=== PATIENT | male | born 1940 | race Caucasian/White ===

== ENCOUNTER → 2016-11-10 | Outpatient (CLI) | payer BC ==
[~2016-11-10] MED LIST: AMOX500C3 PO; APR25 PO; ASCO500T3 PO; ASPI1TAB83 PO; ATOR-26 PO; B-CO-25 PO; CALC600T9 PO; CHOL2000 PO; CLOP1TAB15 PO; COEN100C11 PO; CYAN10005 PO; GABA-113 PO; GLUC10007 PO; HYDR100T12 PO; HYDR25TA4 PO; MULTTAB58 PO; NAPR1TAB9 PO; NRV5 PO; OMEG10007 PO; PHN/100 PO; PLV75 PO; RISE150T PO; SIMV80TA2 PO; TIMO10TA2 OPL; lidocaine patch
--- NOTE | 2016-11-10 13:29 | DIAGNOSTIC IMAGING REPORT ---
CHEST 2 VIEWS ROUTINE CLINICAL HISTORY: Z01.818 preoperative evaluation COMPARISON STUDY: 08/25/2015 FINDINGS: The bones soft tissues and hemidiaphragms are normal. The cardiomediastinal silhouette is normal. The lungs are clear. The pulmonary vasculature is normal. Prior median sternotomy. IMPRESSION: No acute process. Electronically signed by: Kye Valdez M.D. 11/10/2016 1:28 PM Dictated Date/Time: 11/10/2016 1:27 PM
== END | disposition home or self-care (01) ==
LOC: C.RAD1850 13:14
PROVIDERS: ATTEND Physician Assistant
DX: Z01.818 Encounter for other preprocedural examination (principal)

== ENCOUNTER → 2017-04-05 | Day surgery (SDC) | payer BC ==
[2017-03-26 13:20] VITALS: Ht 171.5 cm; Wt 79.5 kg
[~2017-04-05] VITALS: Ht 171.5 cm; Wt 79.5 kg
[~2017-04-05] MED LIST changes: -APR25 PO; -CALC600T9 PO; +LIDOCAINE HCL 2% 2 ML VIAL (20MG/ML) ONE; -NRV5 PO; -OMEG10007 PO; -PLV75 PO; +PROPOFOL IV EMULSION 10 MG/ML 20 ML VIAL IV ONE; -SIMV80TA2 PO; -lidocaine patch
--- NOTE | 2017-04-05 13:27 | Endo History and Physical ---
History & Physical Date of Service: Apr 05, 2017. Chief Complaint: Hx polyps, fam hx colon cancer Referring Physician: Dr Rios History of Present Illness For colonoscopy Past Medical History Arthritis, Anxiety, Reflux, Cancer, High Cholesterol, Sleep Apnea, CABG, Hypertension, CVA/TIA, Depression, IA Past Surgical History Hx Cardiac Surgery: Yes (CABG-2 VESSELS) Hx Internal Defibrillator: No Hx Pacemaker: No Hx Abdominal Surgery: Yes (RT/LEFT INGUINAL HERNIA, APPY, ABDOMINAL ADHESIONS REMOVED X 2) Hx Post-Op Nausea and Vomiting: No Hx Cancer Surgery: No Hx Thoracic Surgery: No Hx Orthopedic: Yes (LUMBAR FUSION AND THEN REPAIR FUSION, LEFT KNEE ARTHROSCOPY ) Hx Urinary Tract Surgery: Yes (PROSTATE BIOPSY) Family History Polyp Social History Smoking Status: Former Smoker Hx Substance Use: No Hx Alcohol Use: No Allergies Coded Allergies: Latex (Verified Allergy, Mild, RASH, 03/26/17) Adhesives (Verified Allergy, Unknown, RASH AND SORE SKIN, 03/26/17) Fexofenadine (Verified Allergy, Unknown, RASH AND NOT FEEL WELL, 03/26/17) Current Medications Reported Home Medications Medications Dose Route/Sig Max Daily Dose Days Date Category Amoxil (Amoxicillin) 500 Mg Cap 500 Mg PO UD 03/26/17 Reported Vitamin C (Ascorbic Acid) 500 Mg Tab 50 Mg PO QAM 03/26/17 Reported Glucosamine (Glucosamine Sulfate) 1,000 Mg Tab 1,000 Mg PO QAM 03/26/17 Reported Aleve (Naproxen) 220 Mg Tab 220 Mg PO BID 03/26/17 Reported Vitamin B-12 (Cyanocobalamin) 1,000 Mcg Tab 1,000 Mcg PO QAM 03/26/17 Reported Lipitor (Atorvastatin Calcium) 80 Mg Tab 80 Mg PO QAM 03/26/17 Reported Blocadren (Timolol Maleate) 10 Mg Tab 10 Mg OPL QAM 03/26/17 Reported Neurontin (Gabapentin) 300 Mg Cap 300 Mg PO TID 03/26/17 Reported Apresoline (Hydralazine Hcl) 100 Mg Tab 100 Mg PO QAM 03/26/17 Reported Actonel (Risedronate Sodium) 150 Mg Tab 1 Tab PO MONTHLY 03/26/17 Reported Plavix (Clopidogrel Bisulfate) 75 Mg Tab 75 Mg PO QAM 03/26/17 Reported Hctz (Hydrochlorothiazide) 25 Mg Tab 25 Mg PO QAM 01/20/16 Reported Coq-10 (Coenzyme Q10 (Ubidecarenone)) 100 Mg Cap 100 Mg PO QAM 09/29/15 Reported Multivitamin (Multiple Vitamin) 1 Tab Tab 1 Tab PO QAM 07/27/14 Reported Super B Complex Maxi (B-Complex W/ Folic Acid) 1 Tab Tab 1 Tab PO QAM 07/27/14 Reported Vitamin D3 (Cholecalciferol) 2,000 Unit Cap 2,000 Inter.unit PO QAM 07/27/14 Reported Aspirin 81 Mg Tab 81 Mg PO QAM 07/27/14 Reported Dilantin (Phenytoin Sodium) 100 Mg Cap 300 Mg PO TID 07/27/14 Reported Vital Signs Weight (Kilograms): 79.55 Height (Feet): 5 Height (Inches): 7.5 Physical Exam General Appearance: WD/WN Respiratory/Chest: Respiratory effort: no dyspnea Cardiovascular: Heart Auscultation: RRR Abdomen: Inspection & Palpation: soft Assessment and Plan Hx of polyps for colonoscopy
--- NOTE | 2017-04-05 14:54 | Discharge Instructions ---
Endoscopy Patient Instructions Date / Procedure(s) Performed Apr 05, 2017. Colonoscopy Allergy Information Coded Allergies: Latex (Verified Allergy, Mild, RASH, 04/05/17) Adhesives (Verified Allergy, Unknown, RASH AND SORE SKIN, 03/26/17) Fexofenadine (Verified Allergy, Unknown, RASH AND NOT FEEL WELL, 03/26/17) Discharge Date / Findings Apr 05, 2017. Diverticulosis Medication Instructions Stopped Medication(s): ASA Plvaix Restart Stopped Medication(s): resume meds Reported Home Medications Medications Dose Route/Sig Max Daily Dose Days Date Category Amoxil (Amoxicillin) 500 Mg Cap 500 Mg PO UD 03/26/17 Reported Vitamin C (Ascorbic Acid) 500 Mg Tab 50 Mg PO QAM 03/26/17 Reported Glucosamine (Glucosamine Sulfate) 1,000 Mg Tab 1,000 Mg PO QAM 03/26/17 Reported Aleve (Naproxen) 220 Mg Tab 220 Mg PO BID 03/26/17 Reported Vitamin B-12 (Cyanocobalamin) 1,000 Mcg Tab 1,000 Mcg PO QAM 03/26/17 Reported Lipitor (Atorvastatin Calcium) 80 Mg Tab 80 Mg PO QAM 03/26/17 Reported Blocadren (Timolol Maleate) 10 Mg Tab 10 Mg OPL QAM 03/26/17 Reported Neurontin (Gabapentin) 300 Mg Cap 300 Mg PO TID 03/26/17 Reported Apresoline (Hydralazine Hcl) 100 Mg Tab 100 Mg PO QAM 03/26/17 Reported Actonel (Risedronate Sodium) 150 Mg Tab 1 Tab PO MONTHLY 03/26/17 Reported Plavix (Clopidogrel Bisulfate) 75 Mg Tab 75 Mg PO QAM 03/26/17 Reported Hctz (Hydrochlorothiazide) 25 Mg Tab 25 Mg PO QAM 01/20/16 Reported Coq-10 (Coenzyme Q10 (Ubidecarenone)) 100 Mg Cap 100 Mg PO QAM 09/29/15 Reported Multivitamin (Multiple Vitamin) 1 Tab Tab 1 Tab PO QAM 07/27/14 Reported Super B Complex Maxi (B-Complex W/ Folic Acid) 1 Tab Tab 1 Tab PO QAM 07/27/14 Reported Vitamin D3 (Cholecalciferol) 2,000 Unit Cap 2,000 Inter.unit PO QAM 07/27/14 Reported Aspirin 81 Mg Tab 81 Mg PO QAM 07/27/14 Reported Dilantin (Phenytoin Sodium) 100 Mg Cap 300 Mg PO TID 07/27/14 Reported Provider Instructions Activity Restrictions - No exercising or heavy lifting for 24 hours. - Do not drink alcohol the day of the procedure. - Do not drive a car or operate machinery until the day after the procedure. - Do not make any important decisions or sign important papers in 24 hours after the procedure. Following Day: - Return to full activity which may include returning to work/school. Diet Start your diet with liquids and light foods (jello, soup, juice, toast). Then eat your usual diet if not nauseated. Treatment For Common After Affects For mild abdominal pain, bloating, or excessive gas: - Rest - Eat lightly - Lie on right side Follow-Up Information Follow-up with Dr Rios as scheduled Anesthesia Information What You Should Know You have had a procedure that required some medicine to reduce anxiety and discomfort. This treatment is called moderate sedation. After receiving the treatment, you may be sleepy, but you will be able to breathe on your own. The effects of the treatment may last for several hours. Follow these instructions along with Activity/Diet recommendations noted above: * Do NOT do anything where dizziness or clumsiness would be dangerous. * Rest quietly at home today, then you can be up and about tomorrow. * Have a responsible person stay with you the rest of today. * You may have had an I.V. today. If so, you may take the dressing off later today. Recommendations Call your doctor if: * Trouble breathing * Continuous vomiting for more than 24 hours * Temperature above 101 degrees * Severe abdominal pain or bloating * Pain not relieved by pain medicine ordered * There is increased drainage or redness from any incision * A large amount of rectal bleeding greater than 2-3 tablespoons. (If you had a polyp/s removed or have hemorrhoids, a small amount of blood - from the rectum is to be expected.) * You have any unanswered questions or concerns. IN THE EVENT OF A SERIOUS EMERGENCY, GO TO THE NEAREST EMERGENCY ROOM Your discharge instructions were prepared by provider Thang Lozada. Patient Instructions Signature Page Juan F Green Patient (or Guardian) Signature/Date: I have read and understand the instructions given to me by my caregivers. Caregiver/RN/Doctor Signature/Date: The above-named patient and/or guardian has received patient instructions on this date. + Original Patient Signature Page (only) stays with chart. Please make copy for patient.
--- NOTE | 2017-04-05 14:58 | GI REPORT ---
Procedure Date: 04/05/2017 1:43 PM Procedure: Colonoscopy Indications: Family history of colon cancer in a first-degree relative, Personal history of colonic polyps Medicines: Propofol total dose 160 mg IV, Lidocaine 40 mg IV Complications: No immediate complications. Estimated Blood Loss: Estimated blood loss: none. Procedure: Pre-Anesthesia Assessment: - Prior to the procedure, a History and Physical was performed, and patient medications, allergies and sensitivities were reviewed. The patient's tolerance of previous anesthesia was reviewed. - The risks and benefits of the procedure and the sedation options and risks were discussed with the patient. All questions were answered and informed consent was obtained. After I obtained informed consent, the scope was passed under direct vision. Throughout the procedure, the patient's blood pressure, pulse, and oxygen saturations were monitored continuously. The scope was introduced through the anus and advanced to the cecum, identified by appendiceal orifice and ileocecal valve.The colonoscopy was somewhat difficult due to significant looping. Successful completion of the procedure was aided by applying abdominal pressure. Findings: A few diverticula were found in the sigmoid colon. Impression: - Diverticulosis in the sigmoid colon. - No specimens collected. Recommendation: - Discharge patient to home (ambulatory). - Continue present medications. - Repeat colonoscopy in 5 years for surveillance. - Return to primary care physician PRN. Thang Lozada M.D. Thang Lozada MD 04/05/2017 2:58:10 PM This report has been signed electronically. Note Initiated On: 04/05/2017 1:43 PM I attest to the content of the Intraoperative Record and orders documented therein, exceptions below
--- NOTE | 2017-04-05 15:23 | Anesthesiology Progress Note ---
Anesthesia Post Op Note Date & Time Apr 05, 2017 at 15:23 Vital Signs Pain Intensity: 0 Vital Signs Past 12 Hours Date Time Temp Pulse Resp B/P (MAP) Pulse Ox O2 Delivery O2 Flow Rate FiO2 04/05/17 15:10 53 16 150/90 (110) 98 Room Air 04/05/17 14:55 52 16 118/88 (98) 97 Room Air 04/05/17 13:35 36.5 49 20 179/93 (121) 98 Room Air Notes Mental Status: alert / awake / arousable, participated in evaluation Pt Amnestic to Procedure: Yes Nausea / Vomiting: adequately controlled Pain: adequately controlled Airway Patency, RR, SpO2: stable & adequate BP & HR: stable & adequate Hydration State: stable & adequate Anesthetic Complications: no major complications apparent
[2017-04-05 15:25] VITALS: BP 167/90; PULSE 47; O2SAT 98
== END | disposition home or self-care (01) ==
LOC: C.GI 13:03
PROVIDERS: ATTEND Internal Medicine Gastroenterology
DX: Z12.11 Encounter for screening for malignant neoplasm of colon (principal); K57.30 Diverticulosis of large intestine without perforation or abscess without bleeding; Z86.010 Personal history of colon polyps; Z80.0 Family history of malignant neoplasm of digestive organs; G47.33 Obstructive sleep apnea (adult) (pediatric); I25.10 Atherosclerotic heart disease of native coronary artery without angina pectoris; E78.00 Pure hypercholesterolemia, unspecified; I10 Essential (primary) hypertension; F32.9 Major depressive disorder, single episode, unspecified; I25.2 Old myocardial infarction; Z95.1 Presence of aortocoronary bypass graft; Z86.73 Personal history of transient ischemic attack (TIA), and cerebral infarction without residual deficits; Z98.890 Other specified postprocedural states; Z90.89 Acquired absence of other organs; Z87.891 Personal history of nicotine dependence; Z79.899 Other long term (current) drug therapy; Z79.02 Long term (current) use of antithrombotics/antiplatelets; Z79.82 Long term (current) use of aspirin; Z91.040 Latex allergy status; Z68.27 Body mass index [BMI] 27.0-27.9, adult

== ENCOUNTER → 2018-01-18 | Outpatient (CLI) | payer BC ==
[~2018-01-18] MED LIST changes: -LIDOCAINE HCL 2% 2 ML VIAL (20MG/ML) ONE; -PROPOFOL IV EMULSION 10 MG/ML 20 ML VIAL IV ONE
--- NOTE | 2018-01-18 13:39 | DIAGNOSTIC IMAGING REPORT ---
L KNEE 3 VIEWS CLINICAL HISTORY: LEFT KNEE PAIN pain COMPARISON: None. DISCUSSION: Moderate degenerative change all major joint compartments. Degenerative change of the medial left patellar femoral articulating surface. Prepatellar soft tissue edema. 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 Prepatellar soft tissue edema. The above report was generated using voice recognition software. It may contain grammatical, syntax or spelling errors. Electronically signed by: Kye Valdez M.D. 01/18/2018 1:38 PM Dictated Date/Time: 01/18/2018 1:37 PM
== END | disposition home or self-care (01) ==
LOC: C.RDSM 13:06
PROVIDERS: ATTEND Physician Assistant
DX: M25.562 Pain in left knee (principal)

== ENCOUNTER → 2018-01-18 | Outpatient (CLI) | payer BC | END | disposition home or self-care (01) | LOC: C.LABSPEC 15:51 | PROVIDERS: ATTEND Physician Assistant | DX: M70.42 Prepatellar bursitis, left knee (principal) ==

== ENCOUNTER 2021-03-29 23:29 | Observation (INO) ==
--- NOTE | 2021-03-30 00:06 | Emergency Department Note ---
Impression & Plan Slurred speech, Facial droop ED Provider Note Name: JOSELYN PATEL Age: 80 Sex: M Arrives Via: Ambulance Informant: Patient, ED Provider: Dimitrios Powers MD Chief Complaint: Stroke like symptoms Impression: Slurred Speech Facial Droop Medical Decision Makin yr old male with history CVA, CAD, HTN, HLP, BPH arrives following a now resolved episode of slurred speech and left facial droop at 9:30pm tonight. Lasted 20-30 mins per . On exam he has some mild word-findings / expressive aphasia issues which relates is at his baseline. He has no neuro deficits other than left leg weakness which patient notes is chronic from back issues and previous stroke. Sent to CT with no acute findings on CT head. He does not meet TPA criteria given resolution of symptoms. Labs unremarkable. Swallowing without difficulty and given asa 324mg PO. Did have some nausea for which zofran given. No abdominal pain nor TTP. Hospitalist consulted for further management of what is likely TIA/CVA. Prior Medical Record and Triage/Nursing Notes reviewed by Me Additional history obtained from chart Differentials:Infection, dehydration, metabolic abnormality, hypo/hyperglycemia, electrolyte disturbance, anemia, hypoxia, cardiac sources, intracerebral event, toxicologic, neurologic, as well as other pathologies. Vital Signs: reviewed and remarkable for HTN Interventions: ASA 324mg po, zofran 4mg po Labs:Reviewed and remarkable for no significant abnormalities Imaging:[facility] Radiologist interpretation reviewed by me: ct head no acute findings EKG:Per My Interpretation: Indication Stroke: Sinus Amadou 49 bpm, qtc 444 with PAC. No Ischemia. Compared to EKG 08/17/20, no significant changes. Cardiac/Tele Monitoring: Cardiac Monitoring: An Order was placed for continuous cardiac monitoring. The monitor shows a rate of 50 with a sinus amadou rhythm. Consults:Dr Amilcar ERAZO Hospitalist Plan: Disposition:Hospitalization Condition: Good History of Present Illness:80 yr old male arrives for evaluation of stroke symptoms. Patient had sudden onset slurred speech, word findings issues and left facial droop at 9:30pm. Symptoms lasted 20-30 minutes before resolving. EMS arrived and brought patient to ED. No medications prior to arrival. No syncope, trauma, injuries, falls. notes that his symptoms have resolved and he is at his baseline. Patient notes stroke 6 yrs ago with residual left hand paresthesias and some left leg weakness attributed to his chronic low back issues. Patient denies headache, neck pain, vision changes, nausea, vomiting, vertigo, fevers, chills, rashes, abdominal pain, back pain, leg swelling, nor other symptoms. No recent bleeding, diarrhea, urinary/bowel symptoms. ROS: See above HPI for pertinent positives & negatives. A total of 10 systems reviewed and were otherwise negative. Past Medical History:See Below Past Surgical History:See Below Family History:See Below Social History:See Below Home Medications:See Below Allergies:See Below Vitals:Blood Pressure: 181/82, Pulse 49, RR 20, O2 99% on RA Physical Exam: GENERAL: Patient is well appearing and in no acute distress. EYES: No scleral icterus, unremarkable pupils. ENT: Mucous membranes moist, no nasal congestion. NECK: No masses appreciated, nomeningismus, trachea is midline. RESPIRATORY: No dyspnea. Clear to auscultation and equal bilaterally. No wheeze, no rhonchi. CARDIOVASCULAR: Regular rate and rhythm.No murmurs, rubs, gallops appreciated. GASTROINTESTINAL: Abdomen soft, non-tender, no peritonitis.Bowel sounds positive.No masses appreciated. BACK: No midline tenderness, no CVA tenderness EXTREMITIES: Normal motion all extremities, no cyanosis, no edema. NEUROLOGIC: Slight word findings difficulty which states is normal. Alert and oriented, no acute motor or sensory deficits, no focal weakness, cranial nerves grossly intact. SKIN: No rash, no jaundice, no diaphoresis. PSYCH: Appropriate GCS: 15 ED Course: Times/Reassessments: Stable, breathing comfortably no distress Dimitrios Powers MD Past Med/Surg History Medical History (Updated 03/30/21 @ 03:20 by Rafiq Montesinos MD) CVA (cerebral vascular accident) Surgical History Hx of CABG Social History Smoking Status: Never smoker Preferred Language: Colombian Feels Safe at Home: Yes Allergies Allergies Allergy/AdvReac Type Severity Reaction Status Date / Time adhesive Allergy Intermediate RASH AND Verified 03/30/21 01:04 SORE SKIN fexofenadine Allergy Intermediate RASH AND Verified 03/30/21 01:04 NOT FEEL WELL latex Allergy Mild RASH Verified 03/30/21 01:04 Home Meds Home Medications Medication Instructions Recorded Confirmed ascorbic acid (vitamin C) 500 mg 500 mg PO QAM 11/29/19 03/30/21 capsule,extended release (Vitamin C) clopidogrel 75 mg tablet 75 mg PO QAM 11/29/19 03/30/21 coenzyme Q10 100 mg capsule 100 mg PO QAM 11/29/19 03/30/21 cyanocobalamin (vitamin B-12) 1,000 mcg PO QAM 11/29/19 03/30/21 1,000 mcg capsule finasteride 5 mg tablet 5 mg PO QPM 11/29/19 03/30/21 hydralazine 25 mg tablet 25 mg PO TID 11/29/19 03/30/21 hydrochlorothiazide 25 mg tablet 25 mg PO QAM 11/29/19 03/30/21 multivitamin 1 tab PO QAM 11/29/19 03/30/21 phenytoin sodium extended 100 mg 100 mg PO TID 11/29/19 03/30/21 capsule risedronate 150 mg tablet 150 mg PO MONTHLY 11/29/19 03/30/21 tamsulosin 0.4 mg capsule 0.4 mg PO QPM 11/29/19 03/30/21 timolol maleate 0.5 % eye drops 2 drp OPL BID 11/29/19 03/30/21 vitamin B complex-folic acid 0.4 1 tab PO QAM 11/29/19 03/30/21 mg tablet (Super B Maxi Complex) atorvastatin 40 mg tablet 40 mg PO HS 08/17/20 03/30/21 calcium carbonate 600 mg (1,500 1 tab PO QAM 08/17/20 03/30/21 mg)-vitamin D3 400 unit tablet (Calcium 600 + D(3)) cholecalciferol (vitamin D3) 25 25 mcg PO QAM 08/17/20 03/30/21 mcg (1,000 unit) capsule (Vitamin D3) lisinopril 20 mg tablet 20 mg PO QAM 08/17/20 03/30/21 Results & Data (ED) Vital Signs Vital Signs - 24 hr 03/29/21 23:37 03/29/21 23:52 03/30/21 00:01 Pulse Rate 50 L 49 L 53 L Pulse Rhythm Regular Pulse Strength Normal Respiratory Rate 27 H 20 20 Respiratory Effort / Characteristics Non-Labored Respiratory Depth Normal Respiratory Pattern Regular Blood Pressure 181/82 H 181/82 H 185/141 H Blood Pressure Mean 115 115 155 Blood Pressure Position Sitting Pulse Oximetry 99 99 Oxygen Delivery Method Room Air Sepsis Recent Fever Within 48 Hours No Sepsis New/Unexplained Change in Mental Status N/A Sepsis Action Taken by Nursing No Action Required 03/30/21 00:26 03/30/21 00:31 03/30/21 00:44 Pulse Rate 49 L 48 L 50 L Pulse Rhythm Pulse Strength Respiratory Rate 13 15 14 Respiratory Effort / Characteristics Respiratory Depth Respiratory Pattern Blood Pressure 187/120 H 188/100 H 186/93 H Blood Pressure Mean 142 129 124 Blood Pressure Position Pulse Oximetry 98 98 96 Oxygen Delivery Method Sepsis Recent Fever Within 48 Hours Sepsis New/Unexplained Change in Mental Status Sepsis Action Taken by Nursing 03/30/21 01:00 03/30/21 01:30 03/30/21 02:01 Pulse Rate 48 L 48 L 50 L Pulse Rhythm Pulse Strength Respiratory Rate 15 21 17 Respiratory Effort / Characteristics Respiratory Depth Respiratory Pattern Blood Pressure 176/102 H 156/96 H 179/93 H Blood Pressure Mean 126 116 121 Blood Pressure Position Pulse Oximetry 96 96 97 Oxygen Delivery Method Sepsis Recent Fever Within 48 Hours Sepsis New/Unexplained Change in Mental Status Sepsis Action Taken by Nursing 03/30/21 02:42 Pulse Rate 54 L Pulse Rhythm Pulse Strength Respiratory Rate 16 Respiratory Effort / Characteristics Respiratory Depth Respiratory Pattern Blood Pressure Blood Pressure Mean Blood Pressure Position Pulse Oximetry Oxygen Delivery Method Sepsis Recent Fever Within 48 Hours Sepsis New/Unexplained Change in Mental Status Sepsis Action Taken by Nursing Laboratory Data Result diagrams: 03/30/21 Unknown 03/30/21 Unknown Lab Results 03/29/21 03/30/21 03/30/21 Range/Units 23:42 00:29 00:43 WBC (4.8-10.8) K/uL RBC (4.7-6.1) M/uL Hgb (14.0-18.0) g/dL Hct (42-52) % MCV (80-100) fL MCH (25-34) pg MCHC (32-36) g/dL RDW Std Deviation (36.4-46.3) fL RDW Coeff of Murali (11.5-14.5) % Plt Count (130-400) K/uL MPV (7.4-10.4) fL Immature Gran % (Auto) % Neut % (Auto) % Lymph % (Auto) % [place] % (Auto) % Eos % (Auto) % Baso % (Auto) % Neut # (Auto) (1.4-6.5) K/uL Lymph # (Auto) (1.2-3.4) K/uL [place] # (Auto) (0.11-0.59) K/uL Eos # (Auto) (0-0.5) K/uL Baso # (Auto) (0-0.2) K/uL Immature Gran # (Auto) (0.00-0.02) K/uL PT (9.0-12.0) Seconds INR (0.9-1.1) APTT (21.0-31.0) Seconds PTT Ratio Sodium (136-145) mmol/L Potassium (3.5-5.1) mmol/L Chloride (98-107) mmol/L Carbon Dioxide (21-32) mmol/L Anion Gap (3-11) BUN (7-18) mg/dl Creatinine (0.6-1.4) mg/dl Est Cr Clr Drug Dosing ml/min Est GFR ( Amer) ml/min Est GFR (Non-Af Amer) ml/min BUN/Creatinine Ratio (10-20) Glucose (70-99) mg/dl POC Glucose 87 (70-99) mg/dl Calcium (8.5-10.1) mg/dl Magnesium (1.8-2.4) mg/dl Total Bilirubin (0.2-1) mg/dl AST (15-37) U/L ALT (12-78) U/L Alkaline Phosphatase (45-117) U/L Troponin I (0-0.045) ng/ml Total Protein (6.4-8.2) gm/dl Albumin (3.4-5.0) gm/dl Globulin (2.5-4.0) gm/dl Albumin/Globulin Ratio (0.9-2) Urine Color Yellow Urine Appearance Clear (Clear) Urine pH 7.5 (4.5-7.5) Ur Specific [place] 1.011 (1.000-1.030) Urine Protein Negative (Negative) Urine Glucose (UA) Negative (Negative) Urine Ketones Negative (Negative) Urine Blood Negative (Negative) Urine Nitrite Negative (Negative) Urine Bilirubin Negative (Negative) Urine Urobilinogen Negative (Negative) Ur Leukocyte Esterase Negative (Negative) COVID-19 Eval Order SARS-CoV-2 (PCR) (Negative) Blood Type A Positive Antibody Screen NEGATIVE 03/30/21 03/30/21 03/30/21 Range/Units 01:37 01:37 Unknown WBC 6.47 (4.8-10.8) K/uL RBC 4.30 L (4.7-6.1) M/uL Hgb 13.0 L (14.0-18.0) g/dL Hct 37.9 L (42-52) % MCV 88.1 (80-100) fL MCH 30.2 (25-34) pg MCHC 34.3 (32-36) g/dL RDW Std Deviation 46.2 (36.4-46.3) fL RDW Coeff of Murali 14.4 (11.5-14.5) % Plt Count 132 (130-400) K/uL MPV 8.8 (7.4-10.4) fL Immature Gran % (Auto) 0.3 % Neut % (Auto) 39.0 % Lymph % (Auto) 28.1 % [place] % (Auto) 31.5 % Eos % (Auto) 0.9 % Baso % (Auto) 0.2 % Neut # (Auto) 2.52 (1.4-6.5) K/uL Lymph # (Auto) 1.82 (1.2-3.4) K/uL [place] # (Auto) 2.04 H (0.11-0.59) K/uL Eos # (Auto) 0.06 (0-0.5) K/uL Baso # (Auto) 0.01 (0-0.2) K/uL Immature Gran # (Auto) 0.02 (0.00-0.02) K/uL PT (9.0-12.0) Seconds INR (0.9-1.1) APTT (21.0-31.0) Seconds PTT Ratio Sodium (136-145) mmol/L Potassium (3.5-5.1) mmol/L Chloride (98-107) mmol/L Carbon Dioxide (21-32) mmol/L Anion Gap (3-11) BUN (7-18) mg/dl Creatinine (0.6-1.4) mg/dl Est Cr Clr Drug Dosing ml/min Est GFR ( Amer) ml/min Est GFR (Non-Af Amer) ml/min BUN/Creatinine Ratio (10-20) Glucose (70-99) mg/dl POC Glucose (70-99) mg/dl Calcium (8.5-10.1) mg/dl Magnesium (1.8-2.4) mg/dl Total Bilirubin (0.2-1) mg/dl AST (15-37) U/L ALT (12-78) U/L Alkaline Phosphatase (45-117) U/L Troponin I (0-0.045) ng/ml Total Protein (6.4-8.2) gm/dl Albumin (3.4-5.0) gm/dl Globulin (2.5-4.0) gm/dl Albumin/Globulin Ratio (0.9-2) Urine Color Urine Appearance (Clear) Urine pH (4.5-7.5) Ur Specific [place] (1.000-1.030) Urine Protein (Negative) Urine Glucose (UA) (Negative) Urine Ketones (Negative) Urine Blood (Negative) Urine Nitrite (Negative) Urine Bilirubin (Negative) Urine Urobilinogen (Negative) Ur Leukocyte Esterase (Negative) COVID-19 Eval Order Covid19 at [facility] SARS-CoV-2 (PCR) NEGATIVE (Negative) Blood Type Antibody Screen 03/30/21 03/30/21 Range/Units Unknown Unknown WBC (4.8-10.8) K/uL RBC (4.7-6.1) M/uL Hgb (14.0-18.0) g/dL Hct (42-52) % MCV (80-100) fL MCH (25-34) pg MCHC (32-36) g/dL RDW Std Deviation (36.4-46.3) fL RDW Coeff of Murali (11.5-14.5) % Plt Count (130-400) K/uL MPV (7.4-10.4) fL Immature Gran % (Auto) % Neut % (Auto) % Lymph % (Auto) % [place] % (Auto) % Eos % (Auto) % Baso % (Auto) % Neut # (Auto) (1.4-6.5) K/uL Lymph # (Auto) (1.2-3.4) K/uL [place] # (Auto) (0.11-0.59) K/uL Eos # (Auto) (0-0.5) K/uL Baso # (Auto) (0-0.2) K/uL Immature Gran # (Auto) (0.00-0.02) K/uL PT 10.6 (9.0-12.0) Seconds INR 1.0 (0.9-1.1) APTT 26.5 (21.0-31.0) Seconds PTT Ratio 1.0 Sodium 136 (136-145) mmol/L Potassium 3.8 (3.5-5.1) mmol/L Chloride 103 (98-107) mmol/L Carbon Dioxide 29 (21-32) mmol/L Anion Gap 5.0 (3-11) BUN 22 H (7-18) mg/dl Creatinine 0.99 (0.6-1.4) mg/dl Est Cr Clr Drug Dosing 62.9 ml/min Est GFR ( Amer) 83.0 ml/min Est GFR (Non-Af Amer) 71.6 ml/min BUN/Creatinine Ratio 22.5 H (10-20) Glucose 87 (70-99) mg/dl POC Glucose (70-99) mg/dl Calcium 8.1 L (8.5-10.1) mg/dl Magnesium 2.2 (1.8-2.4) mg/dl Total Bilirubin 0.2 (0.2-1) mg/dl AST 16 (15-37) U/L ALT 23 (12-78) U/L Alkaline Phosphatase 108 (45-117) U/L Troponin I < 0.015 (0-0.045) ng/ml Total Protein 7.0 (6.4-8.2) gm/dl Albumin 3.5 (3.4-5.0) gm/dl Globulin 3.5 (2.5-4.0) gm/dl Albumin/Globulin Ratio 1.0 (0.9-2) Urine Color Urine Appearance (Clear) Urine pH (4.5-7.5) Ur Specific [place] (1.000-1.030) Urine Protein (Negative) Urine Glucose (UA) (Negative) Urine Ketones (Negative) Urine Blood (Negative) Urine Nitrite (Negative) Urine Bilirubin (Negative) Urine Urobilinogen (Negative) Ur Leukocyte Esterase (Negative) COVID-19 Eval Order SARS-CoV-2 (PCR) (Negative) Blood Type Antibody Screen Administered Medications Discontinued Medications Aspirin (Aspirin 81 Mg Chew) 324 mg PO NOW STA Stop: 03/30/21 00:53 Last Admin: 03/30/21 01:22 Dose: 324 mg Documented by: [id number] Ioversol (Optiray 320 125ml) 100 ml IV ONCE ONE Stop: 03/30/21 02:53 Last Admin: 03/30/21 02:53 Dose: 112 ml Documented by: [id number] Ondansetron HCl (Ondansetron Inj 2 Mg/Ml 2 Ml Vial) 4 mg IV NOW STA Stop: 03/30/21 00:54 Last Admin: 03/30/21 01:23 Dose: 4 mg Documented by: [id number] Discharge Plan Visit Data Chief Complaint: Illness Stated Complaint: Illness ED Provider: Dimitrios Powers Discharge Problem: Slurred speech, Facial droop Forms Stand Alone Forms: [facility] Prescriptions Prescriptions: No Action multivitamin Tablet 1 tab PO QAM RF: 0 hydralazine 25 mg Tablet 25 mg PO TID RF: 0 phenytoin sodium extended 100 mg capsule 100 mg PO TID RF: 0 clopidogrel 75 mg tablet 75 mg PO QAM RF: 0 tamsulosin 0.4 mg capsule 0.4 mg PO QPM RF: 0 ascorbic acid (vitamin C) [Vitamin C] 500 mg Capsule, Extended Release 500 mg PO QAM RF: 0 hydrochlorothiazide 25 mg Tablet 25 mg PO QAM RF: 0 timolol maleate 0.5 % drops 2 drp OPL BID RF: 0 finasteride 5 mg tablet 5 mg PO QPM RF: 0 coenzyme Q10 100 mg Capsule 100 mg PO QAM RF: 0 vitamin B complex-folic acid [Super B Maxi Complex] 0.4 mg Tablet 1 tab PO QAM RF: 0 risedronate 150 mg tablet 150 mg PO MONTHLY RF: 0 cyanocobalamin (vitamin B-12) 1,000 mcg Capsule 1,000 mcg PO QAM RF: 0 atorvastatin 40 mg Tablet 40 mg PO HS RF: 0 lisinopril 20 mg Tablet 20 mg PO QAM RF: 0 cholecalciferol (vitamin D3) [Vitamin D3] 25 mcg (1,000 unit) Capsule 25 mcg PO QAM RF: 0 calcium carbonate-vitamin D3 [Calcium 600 + D(3)] 600 mg(1,500mg) -400 unit Tablet 1 tab PO QAM RF: 0 Referrals Referrals: Francois Rios [Primary Care Provider] -
[2021-03-30 00:11] LABS: Basophils # (auto) 0.01 K/uL (0-0.2); Basophils % (auto) 0.2 %; Eosinophils # (auto) 0.06 K/uL (0-0.5); Eosinophils % (auto) 0.9 %; Hematocrit (blood only) 37.9 % (42-52); Immature Granulocytes # (auto) 0.02 K/uL (0.00-0.02); Immature Granulocytes % (auto) 0.3 %; Lymphocytes # (auto) 1.82 K/uL (1.2-3.4); Lymphocytes % (auto) 28.1 %; Mean Corpuscular Hemoglobin 30.2 pg (25-34); Mean Corpuscular Hgb Conc 34.3 g/dL (32-36); Mean Corpuscular Volume 88.1 fL (80-100); Mean Platelet Volume 8.8 fL (7.4-10.4); Monocytes # (auto) 2.04 K/uL (0.11-0.59); Monocytes % (auto) 31.5 %; Neutrophils # (auto) 2.52 K/uL (1.4-6.5); Platelet Count 132 K/uL (130-400); RDW Coefficient of Variation 14.4 % (11.5-14.5); RDW Standard Deviation 46.2 fL (36.4-46.3); White Blood Count 6.47 K/uL (4.8-10.8)
[2021-03-30 00:22] LABS: Partial Thromboplastin Time 26.5 Seconds (21.0-31.0); Prothrombin Time 10.6 Seconds (9.0-12.0)
[2021-03-30 00:29] LABS: Alanine Aminotransferase 23 U/L (12-78); Albumin Level 3.5 gm/dl (3.4-5.0); Aspartate Aminotransferase 16 U/L (15-37); BUN Creatinine Ratio 22.5 (10-20); Blood Urea Nitrogen 22 mg/dl (7-18); Calcium 8.1 mg/dl (8.5-10.1); Carbon Dioxide 29 mmol/L (21-32); Chloride 103 mmol/L (98-107); Creatinine Clr Calc Pharmacy 62.9 ml/min; Est GFR (Non-African American) 71.6 ml/min; Glucose 87 mg/dl (70-99); Magnesium 2.2 mg/dl (1.8-2.4); Potassium 3.8 mmol/L (3.5-5.1); Sodium 136 mmol/L (136-145)
[2021-03-30 00:34] LABS: Alkaline Phosphatase 108 U/L (45-117); Bilirubin,Total 0.2 mg/dl (0.2-1); Globulin 3.5 gm/dl (2.5-4.0); Troponin I < 0.015 ng/ml (0-0.045)
[2021-03-30] MEDS ORDERED: ASPIRIN 81 MG CHEW PO STA (00:52)
[2021-03-30] MEDS ORDERED: ONDANSETRON INJ 2 MG/ML 2 ML VIAL IV STA (00:53)
[2021-03-30 00:56] LABS: Appearance Urine Clear (Clear); Bilirubin Urine Negative (Negative); Blood Urine Negative (Negative); Color Urine Yellow; Glucose Urine UA Negative (Negative); Ketones Urine Negative (Negative); Leukocyte Esterase Urine Negative (Negative); Nitrite Urine Negative (Negative); Protein Urine Negative (Negative); Specific Gravity Urine 1.011 (1.000-1.030); Urobilinogen Urine Negative (Negative); pH Urine 7.5 (4.5-7.5)
--- NOTE | 2021-03-30 02:13 | History & Physical Report ---
Date of Service March 30, 2021 Assessment & Plan (1) Expressive aphasia: Plan: Juan F Green is an 80-year-old male with past medical history significant for CABG x2 (1997), CVA (2014), seizure disorder, hypertension, hyperlipidemia, BPH, and osteoporosis; who presents for concerns of approximately 30 minutes of word finding difficulty earlier this evening. Expressive aphasia: -Symptoms lasted approximately 30 minutes before complete resolution -No residual effects or deficits at this time -CT head demonstrating no acute intracranial findings -CTA head neck pending -MRI in a.m. -No indication for TPA given resolution of symptoms -Consult neurology as part of stroke protocol History of CVA: -CVA in August 2014 -No recurrence of symptoms since that time -Continue risk factor modification with Plavix, lisinopril, and atorvastatin Seizure disorder: -Last known seizure in 1990 -continue phenytoin 20 mg 3 times daily History of CABG: -Two-vessel CABG in 1997 -Most recent echo with [facility] (Dr. Oates) in August 2020 -Risk factor modification as above Bradycardia: -Patient has had persistent bradycardia over the last several years -Seen and evaluated numerous times with cardiology with no identified triggers -Previously had recommended future evaluation with continuous cardiac monitoring -Given potential for timolol eyedrop contributions to bradycardia will hold at this time BPH: -Continue finasteride and tamsulosin Osteoporosis: -Monthly risedronate Diet: Heart healthy CODE STATUS: Conditional code (DNI) (2) CVA (cerebral vascular accident): (3) Hx of CABG: (4) Bradycardia: (5) BPH (benign prostatic hyperplasia): (6) HTN (hypertension): (7) HLD (hyperlipidemia): (8) Osteopenia: History of Present Illness Primary Care Provider: Francois Rios Juan F Green is an 80-year-old male with past medical history significant for CABG x2 (1997), CVA (2014), seizure disorder, hypertension, hyperlipidemia, BPH, and osteoporosis; who presents for concerns of approximately 30 minutes of word finding difficulty earlier this evening. Starting at approximately 9:30 PM while watching TV with his noticed he was having difficulty vocalizing the specific words he wanted to say. additionally noted this, as well as his daughter noted that he was having some left-sided facial droop with may be some left leg weakness. does endorse that he has issues with finding words intermittently and this is pending somewhat persistent since his original stroke. Upon presentation to the ED had complete resolution of slurred speech and facial droop with questionable residual left leg weakness. Has full recollection of the entirety of events associated specifically with the word finding difficulties but recalls seemingly losing 29 minutes in which he felt like he was asleep prior to when his noticed the word difficulty finding. reports that the 20 some odd minutes prior to word finding he was awake, but patient has no recollection of this time. He knows this specific time as he was sitting down playing [employer] and remembers seeing the clock at 9:00 PM and the next moment that he remembers is feeling like he was waking up with this word finding difficulty at 9:30 PM. Allergies Allergy/AdvReac Type Severity Reaction Status Date / Time adhesive Allergy Intermediate RASH AND Verified 03/30/21 01:04 SORE SKIN fexofenadine Allergy Intermediate RASH AND Verified 03/30/21 01:04 NOT FEEL WELL latex Allergy Mild RASH Verified 03/30/21 01:04 Home Medications Medication Instructions Recorded Confirmed Type ascorbic acid (vitamin C) 500 mg 500 mg PO QAM 11/29/19 03/30/21 History capsule,extended release (Vitamin C) clopidogrel 75 mg tablet 75 mg PO QAM 11/29/19 03/30/21 History coenzyme Q10 100 mg capsule 100 mg PO QAM 11/29/19 03/30/21 History cyanocobalamin (vitamin B-12) 1,000 mcg PO QAM 11/29/19 03/30/21 History 1,000 mcg capsule finasteride 5 mg tablet 5 mg PO QPM 11/29/19 03/30/21 History hydralazine 25 mg tablet 25 mg PO TID 11/29/19 03/30/21 History hydrochlorothiazide 25 mg tablet 25 mg PO QAM 11/29/19 03/30/21 History multivitamin 1 tab PO QAM 11/29/19 03/30/21 History phenytoin sodium extended 100 mg 100 mg PO TID 11/29/19 03/30/21 History capsule risedronate 150 mg tablet 150 mg PO MONTHLY 11/29/19 03/30/21 History tamsulosin 0.4 mg capsule 0.4 mg PO QPM 11/29/19 03/30/21 History timolol maleate 0.5 % eye drops 2 drp OPL BID 11/29/19 03/30/21 History vitamin B complex-folic acid 0.4 1 tab PO QAM 11/29/19 03/30/21 History mg tablet (Super B Maxi Complex) atorvastatin 40 mg tablet 40 mg PO HS 08/17/20 03/30/21 History calcium carbonate 600 mg (1,500 1 tab PO QAM 08/17/20 03/30/21 History mg)-vitamin D3 400 unit tablet (Calcium 600 + D(3)) cholecalciferol (vitamin D3) 25 25 mcg PO QAM 08/17/20 03/30/21 History mcg (1,000 unit) capsule (Vitamin D3) lisinopril 20 mg tablet 20 mg PO QAM 08/17/20 03/30/21 History aspirin 81 mg tablet,delayed 81 mg PO DAILY 28 Days #28 tab 03/30/21 Rx release (Aspirin Low Dose) Past Med/Surg History Medical History (Updated 03/30/21 @ 12:24 by Sherri Barker MD) CVA (cerebral vascular accident) Surgical History Hx of CABG Social History Smoking Status: Never smoker Hx Alcohol Use: Yes Hx Substance Use: No Preferred Language: [place]rugu[place] Communication Ability: Effective Beliefs That Will Affect Care: None marital status: Current Living Situation: Spouse How many Children do You have: 3 Feels Safe at Home: Yes Assistive Devices: Walker Review of Systems Review of Systems: All systems reviewed & are unremarkable except as noted in HPI & below Physical Exam Constitutional: WD/WN, vitals as above Eyes: PERRL, conjunctivae normal, anicteric sclerae Respiratory: normal respiratory effort, lungs clear to auscultation Auscultation: no crackles, no rales, no rhonchi and no wheezes Cardiovascular: Rate/Rhythm: regular rate and regular rhythm Heart Sounds: no gallop, no murmur and no cardiac rub Vessels: normal peripheral pulses; no JVD Extremities: no edema Gastrointestinal (Abdomen): Inspection/Auscultation: normal bowel sounds; abdomen not distended Percussion/Palpation: abdomen soft; abdomen nontender and no guarding Musculoskeletal: no cyanosis or clubbing, extremities motor strength 5/5 Skin: no rashes, warm and dry Neurologic: PERRL, EOMI, accommodation nl, no face palsy, no dysarthria CN's II-XI intact bilaterally and moves all extremities Psychiatric: Orientation: alert and oriented x 3 Results & Data Results & Data ([facility]) Vital Signs (Past 12 Hours) Vital Signs Pulse Resp BP Pulse Ox 03/29/21 23:52 49 L 20 181/82 H 99 Laboratory Results 03/30/21 03/30/21 03/30/21 Range/Units Unknown Unknown Unknown WBC 6.47 (4.8-10.8) K/uL RBC 4.30 L (4.7-6.1) M/uL Hgb 13.0 L (14.0-18.0) g/dL Hct 37.9 L (42-52) % MCV 88.1 (80-100) fL MCH 30.2 (25-34) pg MCHC 34.3 (32-36) g/dL RDW Std Deviation 46.2 (36.4-46.3) fL RDW Coeff of Murali 14.4 (11.5-14.5) % Plt Count 132 (130-400) K/uL MPV 8.8 (7.4-10.4) fL Immature Gran % (Auto) 0.3 % Neut % (Auto) 39.0 % Lymph % (Auto) 28.1 % [place] % (Auto) 31.5 % Eos % (Auto) 0.9 % Baso % (Auto) 0.2 % Neut # (Auto) 2.52 (1.4-6.5) K/uL Lymph # (Auto) 1.82 (1.2-3.4) K/uL [place] # (Auto) 2.04 H (0.11-0.59) K/uL Eos # (Auto) 0.06 (0-0.5) K/uL Baso # (Auto) 0.01 (0-0.2) K/uL Immature Gran # (Auto) 0.02 (0.00-0.02) K/uL PT 10.6 (9.0-12.0) Seconds INR 1.0 (0.9-1.1) APTT 26.5 (21.0-31.0) Seconds PTT Ratio 1.0 Sodium 136 (136-145) mmol/L Potassium 3.8 (3.5-5.1) mmol/L Chloride 103 (98-107) mmol/L Carbon Dioxide 29 (21-32) mmol/L Anion Gap 5.0 (3-11) BUN 22 H (7-18) mg/dl Creatinine 0.99 (0.6-1.4) mg/dl Est Cr Clr Drug Dosing 62.9 ml/min Est GFR ( Amer) 83.0 ml/min Est GFR (Non-Af Amer) 71.6 ml/min BUN/Creatinine Ratio 22.5 H (10-20) Glucose 87 (70-99) mg/dl POC Glucose (70-99) mg/dl Calcium 8.1 L (8.5-10.1) mg/dl Magnesium 2.2 (1.8-2.4) mg/dl Total Bilirubin 0.2 (0.2-1) mg/dl AST 16 (15-37) U/L ALT 23 (12-78) U/L Alkaline Phosphatase 108 (45-117) U/L Troponin I < 0.015 (0-0.045) ng/ml Total Protein 7.0 (6.4-8.2) gm/dl Albumin 3.5 (3.4-5.0) gm/dl Globulin 3.5 (2.5-4.0) gm/dl Albumin/Globulin Ratio 1.0 (0.9-2) Urine Color Urine Appearance (Clear) Urine pH (4.5-7.5) Ur Specific [place] (1.000-1.030) Urine Protein (Negative) Urine Glucose (UA) (Negative) Urine Ketones (Negative) Urine Blood (Negative) Urine Nitrite (Negative) Urine Bilirubin (Negative) Urine Urobilinogen (Negative) Ur Leukocyte Esterase (Negative) COVID-19 Eval Order SARS-CoV-2 (PCR) (Negative) Blood Type Antibody Screen 03/30/21 03/30/21 03/30/21 Range/Units 01:37 01:37 00:43 WBC (4.8-10.8) K/uL RBC (4.7-6.1) M/uL Hgb (14.0-18.0) g/dL Hct (42-52) % MCV (80-100) fL MCH (25-34) pg MCHC (32-36) g/dL RDW Std Deviation (36.4-46.3) fL RDW Coeff of Murali (11.5-14.5) % Plt Count (130-400) K/uL MPV (7.4-10.4) fL Immature Gran % (Auto) % Neut % (Auto) % Lymph % (Auto) % [place] % (Auto) % Eos % (Auto) % Baso % (Auto) % Neut # (Auto) (1.4-6.5) K/uL Lymph # (Auto) (1.2-3.4) K/uL [place] # (Auto) (0.11-0.59) K/uL Eos # (Auto) (0-0.5) K/uL Baso # (Auto) (0-0.2) K/uL Immature Gran # (Auto) (0.00-0.02) K/uL PT (9.0-12.0) Seconds INR (0.9-1.1) APTT (21.0-31.0) Seconds PTT Ratio Sodium (136-145) mmol/L Potassium (3.5-5.1) mmol/L Chloride (98-107) mmol/L Carbon Dioxide (21-32) mmol/L Anion Gap (3-11) BUN (7-18) mg/dl Creatinine (0.6-1.4) mg/dl Est Cr Clr Drug Dosing ml/min Est GFR ( Amer) ml/min Est GFR (Non-Af Amer) ml/min BUN/Creatinine Ratio (10-20) Glucose (70-99) mg/dl POC Glucose (70-99) mg/dl Calcium (8.5-10.1) mg/dl Magnesium (1.8-2.4) mg/dl Total Bilirubin (0.2-1) mg/dl AST (15-37) U/L ALT (12-78) U/L Alkaline Phosphatase (45-117) U/L Troponin I (0-0.045) ng/ml Total Protein (6.4-8.2) gm/dl Albumin (3.4-5.0) gm/dl Globulin (2.5-4.0) gm/dl Albumin/Globulin Ratio (0.9-2) Urine Color Yellow Urine Appearance Clear (Clear) Urine pH 7.5 (4.5-7.5) Ur Specific [place] 1.011 (1.000-1.030) Urine Protein Negative (Negative) Urine Glucose (UA) Negative (Negative) Urine Ketones Negative (Negative) Urine Blood Negative (Negative) Urine Nitrite Negative (Negative) Urine Bilirubin Negative (Negative) Urine Urobilinogen Negative (Negative) Ur Leukocyte Esterase Negative (Negative) COVID-19 Eval Order Covid19 at [facility] SARS-CoV-2 (PCR) NEGATIVE (Negative) Blood Type Antibody Screen 03/30/21 03/29/21 Range/Units 00:29 23:42 WBC (4.8-10.8) K/uL RBC (4.7-6.1) M/uL Hgb (14.0-18.0) g/dL Hct (42-52) % MCV (80-100) fL MCH (25-34) pg MCHC (32-36) g/dL RDW Std Deviation (36.4-46.3) fL RDW Coeff of Murali (11.5-14.5) % Plt Count (130-400) K/uL MPV (7.4-10.4) fL Immature Gran % (Auto) % Neut % (Auto) % Lymph % (Auto) % [place] % (Auto) % Eos % (Auto) % Baso % (Auto) % Neut # (Auto) (1.4-6.5) K/uL Lymph # (Auto) (1.2-3.4) K/uL [place] # (Auto) (0.11-0.59) K/uL Eos # (Auto) (0-0.5) K/uL Baso # (Auto) (0-0.2) K/uL Immature Gran # (Auto) (0.00-0.02) K/uL PT (9.0-12.0) Seconds INR (0.9-1.1) APTT (21.0-31.0) Seconds PTT Ratio Sodium (136-145) mmol/L Potassium (3.5-5.1) mmol/L Chloride (98-107) mmol/L Carbon Dioxide (21-32) mmol/L Anion Gap (3-11) BUN (7-18) mg/dl Creatinine (0.6-1.4) mg/dl Est Cr Clr Drug Dosing ml/min Est GFR ( Amer) ml/min Est GFR (Non-Af Amer) ml/min BUN/Creatinine Ratio (10-20) Glucose (70-99) mg/dl POC Glucose 87 (70-99) mg/dl Calcium (8.5-10.1) mg/dl Magnesium (1.8-2.4) mg/dl Total Bilirubin (0.2-1) mg/dl AST (15-37) U/L ALT (12-78) U/L Alkaline Phosphatase (45-117) U/L Troponin I (0-0.045) ng/ml Total Protein (6.4-8.2) gm/dl Albumin (3.4-5.0) gm/dl Globulin (2.5-4.0) gm/dl Albumin/Globulin Ratio (0.9-2) Urine Color Urine Appearance (Clear) Urine pH (4.5-7.5) Ur Specific [place] (1.000-1.030) Urine Protein (Negative) Urine Glucose (UA) (Negative) Urine Ketones (Negative) Urine Blood (Negative) Urine Nitrite (Negative) Urine Bilirubin (Negative) Urine Urobilinogen (Negative) Ur Leukocyte Esterase (Negative) COVID-19 Eval Order SARS-CoV-2 (PCR) (Negative) Blood Type A Positive Antibody Screen NEGATIVE Diagnostic Findings CT HEAD: No intracranial hemorrhage or apparent acute cortical infarct. Involutional changes with small vessel disease. Old lacunar infarct. No discrete mass lesion or midline shift. Radiologist: Sury Byers M.D. Medications Administered Home Medication List Medication Instructions Recorded ascorbic acid (vitamin C) 500 mg 500 mg PO QAM 11/29/19 capsule,extended release (Vitamin C) clopidogrel 75 mg tablet 75 mg PO QAM 11/29/19 coenzyme Q10 100 mg capsule 100 mg PO QAM 11/29/19 cyanocobalamin (vitamin B-12) 1,000 mcg PO QAM 11/29/19 1,000 mcg capsule finasteride 5 mg tablet 5 mg PO QPM 11/29/19 hydralazine 25 mg tablet 25 mg PO TID 11/29/19 hydrochlorothiazide 25 mg tablet 25 mg PO QAM 11/29/19 multivitamin 1 tab PO QAM 11/29/19 phenytoin sodium extended 100 mg 100 mg PO TID 11/29/19 capsule risedronate 150 mg tablet 150 mg PO MONTHLY 11/29/19 tamsulosin 0.4 mg capsule 0.4 mg PO QPM 11/29/19 timolol maleate 0.5 % eye drops 2 drp OPL BID 11/29/19 vitamin B complex-folic acid 0.4 1 tab PO QAM 11/29/19 mg tablet (Super B Maxi Complex) atorvastatin 40 mg tablet 40 mg PO HS 08/17/20 calcium carbonate 600 mg (1,500 1 tab PO QAM 08/17/20 mg)-vitamin D3 400 unit tablet (Calcium 600 + D(3)) cholecalciferol (vitamin D3) 25 25 mcg PO QAM 08/17/20 mcg (1,000 unit) capsule (Vitamin D3) lisinopril 20 mg tablet 20 mg PO QAM 08/17/20 Supervising Physician Co-Signing Physician Notes Attending addendum: I have physically seen this patient, have supervised the medical residents activities, and agree with the H&P unless as otherwise noted. Assessment and Plan: Expressive aphasia/slurred speech/left facial droop- Symptoms resolved spontaneously after [address] head negative CTA head neck pending MRI in a.m. tPA not indicated due to resolution of symptoms Stroke without TPA order set Consult PT/OT/neurology Seizure disorder- Continue phenytoin at present dosing, but check levels first Remaining orders and notations as noted Resident Activity Tracking Resident Involvement: Resident Care Provided Care Provided: Adult [facility]
[2021-03-30] MEDS ORDERED: OPTIRAY 320 125ml IV ONE (02:52)
[2021-03-30] MEDS ORDERED: PHARMACIST DISCHARGE MED REC CONSULT PRN (04:43)
[2021-03-30] MEDS ORDERED: GADOBUTROL 65ML VIAL IV ONE (05:52)
--- NOTE | 2021-03-30 07:30 | CT Scan Report ---
NECK CTA HISTORY: expressive aphasia TECHNIQUE: Multiaxial CT images of the neck were performed following the intravenous administration o f contrast to evaluate the major cervical vessels. Maximum intensity projection images were also obta ined. All measurements were calculated based on NASCET criteria. A dose lowering technique was utili zed adhering to the principles of ALARA. COMPARISON STUDY: None. FINDINGS: The aortic arch and proximal great vessels are widely patent. There is no significant sten osis, occlusion, or dissection identified within the bilateral common carotid or internal carotid art eries. There are poststernotomy changes. Degenerative changes within the cervical spine. Mild calcifi ed plaque within the bilateral carotid bifurcations. Moderate calcified plaque at the takeoff of the right vertebral artery resulting in moderate stenosis. The left vertebral artery is patent. IMPRESSION: No significant stenosis, occlusion, or dissection identified within the carotid or left vertebral art eries. Moderate focal stenosis at the takeoff of the right vertebral artery due to the calcified plaq ue. ACT 112: Negative or not required by law. Electronically signed by: Vadim Cervantes M.D. 03/30/2021 7:28 AM
[2021-03-30 08:03] LABS: Basophils # (auto) 0.01 K/uL (0-0.2); Basophils % (auto) 0.2 %; Eosinophils # (auto) 0.05 K/uL (0-0.5); Eosinophils % (auto) 0.8 %; Hematocrit (blood only) 37.7 % (42-52); Hemoglobin 12.8 g/dL (14.0-18.0); Immature Granulocytes # (auto) 0.02 K/uL (0.00-0.02); Immature Granulocytes % (auto) 0.3 %; Lymphocytes % (auto) 19.7 %; Mean Corpuscular Hemoglobin 30.4 pg (25-34); Mean Corpuscular Volume 89.5 fL (80-100); Mean Platelet Volume 8.7 fL (7.4-10.4); Monocytes # (auto) 1.58 K/uL (0.11-0.59); Neutrophils # (auto) 3.63 K/uL (1.4-6.5); Platelet Count 128 K/uL (130-400); RDW Coefficient of Variation 14.4 % (11.5-14.5); RDW Standard Deviation 47.5 fL (36.4-46.3); Red Blood Count 4.21 M/uL (4.7-6.1); White Blood Count 6.59 K/uL (4.8-10.8)
--- NOTE | 2021-03-30 08:06 | CT Scan Report ---
CT head/brain wo con CLINICAL HISTORY: Stroke Like Symptoms COMPARISON STUDY: September 30, 2015 TECHNIQUE: Axial CT of the brain is performed from the vertex to the skull base. IV contrast was not administered for this examination. A dose lowering technique was utilized adhering to the principles of ALARA. CT DOSE: 691.05 mGy.cm FINDINGS: No intra or extra-axial mass lesions are visualized. There is no CT evidence of acute cortical infarc tion. There is no evidence of midline shift. There is no acute hemorrhage. No acute depressed calvar ial fractures are visualized. There are patchy white matter hypodensities likely on a small vessel basis. Hypoattenuating lesion is seen within the right periventricular white matter likely representing lacu michelle infarct, above-mentioned findings are new since prior study performed in 2016. Minimal atrophic changes of brain parenchyma associated with diffuse dilatation of the ventricles whi ch is too prominent for the degree of atrophic changes, overall findings are stable since prior. Diff erential diagnosis might include hydrocephalus. There is no evidence of acute sinusitis IMPRESSION: 1. No acute intracranial hemorrhage, no midline shift or space occupying lesions. 2. Chronic small vessel ischemia. 3. Minimal atrophic changes of brain parenchyma associated with ventricular dilatation which is too prominent for the degree of parenchymal atrophy and might represent ex vacuo dilatation and/or hydroc ephalus. Overall findings are stable since prior. Please correlate above-mentioned findings with prio r history and clinical presentation of hydrocephalus. 4. Lacunar infarct within the right periventricular white matter, new since prior study. ACT 112: Negative or not required by law. The above report was generated using voice recognition software. It may contain grammatical, syntax o r spelling errors. Electronically signed by: Gabriela Purvis DO 03/30/2021 8:04 AM
--- NOTE | 2021-03-30 08:10 | Magnetic Resonance Report ---
MR brain wo/w con HISTORY: 80 years-old Male expressive aphasia acute slurred speech with left-sided facial droop. Acu te strokelike symptoms COMPARISON: Head CT, CTA head and neck of same day, brain MRI 09/29/2015 TECHNIQUE: Multiplanar multisequence MRI of the brain was obtained both with and without the use of 8 .5 mL Gadavist FINDINGS: Data Entry Supervisor localizer images demonstrate no gross extracranial abnormality. There is no restricted diffusio n to suggest acute or subacute infarct. No acute intracranial hemorrhage, midline shift, abnormal ext ra-axial collection, hydrocephalus or intracranial mass. Age-related involutional changes. Extensive and confluent T2/FLAIR hyperintensities are noted throughout the white matter of the cerebral hemisph eres, progressed from the 2016 comparison. The study is motion degraded. There is a suggested small d evelopmental venous anomaly of the inferior right cerebellar hemisphere. No additional abnormal enhan cement identified. Cerebral venous sinuses and major arterial flow voids appear patent. The mastoid air cells are clear. Mild mucosal thickening of the ethmoid and frontal sinuses. Prior bilateral lens repair. The skull a nd soft tissues are unremarkable. IMPRESSION: 1. No acute intracranial abnormality. No acute or subacute infarct. 2. Age-related involutional changes with extensive chronic microvascular ischemic disease. ACT 112: Negative or not required by law. The above report was generated using voice recognition software. It may contain grammatical, syntax o r spelling errors. Electronically signed by: Edwin Winters M.D. 03/30/2021 8:08 AM
[2021-03-30 08:18] LABS: Estimated Average Glucose 100 mg/dl; Hemoglobin A1C 5.1 % (4.5-5.6)
[2021-03-30 08:39] LABS: BUN Creatinine Ratio 19.2 (10-20); Calcium 8.1 mg/dl (8.5-10.1); Creatinine Clr Calc Pharmacy 64.5 ml/min; Est GFR (African American) 87.3 ml/min; Est GFR (Non-African American) 75.3 ml/min; Potassium 3.8 mmol/L (3.5-5.1)
[2021-03-30] MEDS: hydrALAZINE HCL 25 MG TAB PO SCH ×2 (08:41→13:08)
--- NOTE | 2021-03-30 08:56 | CT Scan Report ---
CT angio head w con CLINICAL HISTORY: expressive aphasia TECHNIQUE: CT angiography of the head was performed in a dynamic helical fashion during intravenous a dministration of 112 cc of Optiray. MIP imaging was performed. A dose lowering technique was utilized adhering to the principles of ALARA. CT DOSE: 615.90 mGy.cm COMPARISON STUDY: No previous studies for comparison. FINDINGS: Distal right and left internal carotid arteries are patent. Small calcified peripheral plaque is seen within cavernosal portion of the left internal carotid artery, no hemodynamically significant stenos is is seen. There is 1 mm outpouching is seen within cavernosal portion of the right internal carotid artery whic h may represent small aneurysm or opacified adjacent venous structure (3/104). Multiple opacified venous structures are seen within bilateral cavernosal sinuses, left more prominen t than right which could be due to timing of the contrast. Fistula is less likely. There is no superi or ophthalmic vein enhancement is seen. Bilateral middle cerebral arteries, anterior cerebral arteries and anterior communicating arteries ar e patent without significant stenosis or occlusion. Distal aspect of bilateral vertebral arteries are patent. Basilar artery is normally opacified. Right and left posterior cerebral arteries are patent without hemodynamically significant stenosis or focal occlusion. Right and left posterior communicating arteries are hypoplastic which could represent developmental v ariant. IMPRESSION: 1. No evidence of hemodynamically significant stenosis of the bilateral middle cerebral, anterior ce rebral or posterior cerebral arteries. 2. There is small, 1 mm outpouching within cavernosal portion of the right internal carotid artery w hich could represent small aneurysm or adjacent opacified small venous structure. 3. Slightly asymmetrical venous enhancement within left cavernosal sinus which could be due to timin g of the contrast, slow flow fistula is less likely. Follow-up evaluation with MR angiography might be considered. ACT 112: Negative or not required by law. The above report was generated using voice recognition software. It may contain grammatical, syntax o r spelling errors. Electronically signed by: Gabriela Purvis DO 03/30/2021 8:54 AM
[2021-03-30] MEDS ORDERED: CLOPIDOGREL BISULFATE 75 MG TAB PO SCH (09:00)
[2021-03-30] MEDS ORDERED: hydroCHLOROthiazide 25 MG TAB PO SCH (09:00)
[2021-03-30] MEDS ORDERED: lisinopril 20 MG TAB PO SCH (09:00)
--- NOTE | 2021-03-30 09:46 | Neurology Consultation ---
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 Symptom localization: right MCA territory, less likely right [employer] DES[employer] Stroke mechanism: cardioembolic vs cryptogenic Stroke WorkUp: - CT head: showed small chronic infarct in the right periventricular region, +SVID, mild to moderate generalized atrophy with ex vacuo dilation, no hemorrhage - CTA head/neck: showed no LVO, high grade stenosis or aneurysm. - MRI brain: showed no acute infarct, small chronic infarct in right periventricular region, moderate to severe SVID with confluent white matter hyperintensities, and mild to moderate generalized atrophy with ex vacuo dilation. - TTE: pending - Telemetry: pending - A1c: 5.1 - FLP: 44 - Troponin: negative Stroke Management: - Acute treatment: ASA - Continuous cardiac monitoring, recommend 30 day event monitor as outpatient if telemetry here unrevealing - Vitals, Neurochecks, NIHSS per unit routine - BP parameters: SBP CAP 180, restart home BP meds - Consult speech, PT, OT for supportive management - Will marriage counselor concerning stroke education, smoking cessation, healthy diet, physical activity, weight loss - Follow up with PCP for assistance with outpatient goals (BP <130/80, LDL <70, A1c <7) - Follow up in neurology clinic in 6-8 weeks Secondary Stroke Prevention: - Antiplatelet: ASA 81mg po daily - Anticoagulation: Not indicated at this time - Statin: continue home Atorvastatin 40mg daily HTN: - BP parameters, as above - Restart home medications with goal of lowering BP to normotension over next 3- 4 days FEN/GI: - Diet: Cardiac HH diet and PO meds given absence of bulbar signs or symptoms - Monitor lytes and replete PRN Glucose Control: - Sliding scale insulin and accuchecks per primary team to avoid hyperglycemia Thank you for this interesting consult. Plan of care was discussed with primary team. Please call with any questions. He is stable for discharge from a neurological standpoint. 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 DEHYDRATOR TENDER ~9:30pm on 03/29/21. In the ED, BP 181/82, HR 50, RR 20, satting 99% on room air. Labs notable for WBC 6.47, Hb 13 (low), Plts 132, Na/K WNL, Cr 0.99, glucose 87, INR 1, LFTs WNL, troponin negative, UA negative, COVID negative, A1c 5.1, calcium low at 8.1, LDL 44. Imaging independently reviewed. CTH showed small chronic infarct in the right periventricular region, +SVID, mild to moderate generalized atrophy with ex vacuo dilation, no hemorrhage. CTA H&N showed no LVO, high grade stenosis or aneurysm. MRI brain showed no acute infarct, small chronic infarct in right periventricular region, moderate to severe SVID with confluent white matter hyperintensities, and mild to moderate generalized atrophy with ex vacuo dilation. Today, he reports that he was in his normal state of health watching tv and playing solitaire on the computer when his family noticed garbled speech and left facial droop. DEHYDRATOR TENDER ~9-9:30pm. Symptoms resolved after about 30 minutes. Has taken his plavix and dilantin with no recent missed doses. Denies recent illness, injury, medication change, increased stress or tiredness. Prior seizures were GTCs, last in the . Prior stroke occurred in August 2014 with left sided weakness and slurred speech; reports residual mild speech difficulties. Allergies Allergy/AdvReac Type Severity Reaction Status Date / Time adhesive Allergy Intermediate RASH AND Verified 03/30/21 01:04 SORE SKIN fexofenadine Allergy Intermediate RASH AND Verified 03/30/21 01:04 NOT FEEL WELL latex Allergy Mild RASH Verified 03/30/21 01:04 Home Medications Medication Instructions Recorded Confirmed Type ascorbic acid (vitamin C) 500 mg 500 mg PO QAM 11/29/19 03/30/21 History capsule,extended release (Vitamin C) clopidogrel 75 mg tablet 75 mg PO QAM 11/29/19 03/30/21 History coenzyme Q10 100 mg capsule 100 mg PO QAM 11/29/19 03/30/21 History cyanocobalamin (vitamin B-12) 1,000 mcg PO QAM 11/29/19 03/30/21 History 1,000 mcg capsule finasteride 5 mg tablet 5 mg PO QPM 11/29/19 03/30/21 History hydralazine 25 mg tablet 25 mg PO TID 11/29/19 03/30/21 History hydrochlorothiazide 25 mg tablet 25 mg PO QAM 11/29/19 03/30/21 History multivitamin 1 tab PO QAM 11/29/19 03/30/21 History phenytoin sodium extended 100 mg 100 mg PO TID 11/29/19 03/30/21 History capsule risedronate 150 mg tablet 150 mg PO MONTHLY 11/29/19 03/30/21 History tamsulosin 0.4 mg capsule 0.4 mg PO QPM 11/29/19 03/30/21 History timolol maleate 0.5 % eye drops 2 drp OPL BID 11/29/19 03/30/21 History vitamin B complex-folic acid 0.4 1 tab PO QAM 11/29/19 03/30/21 History mg tablet (Super B Maxi Complex) atorvastatin 40 mg tablet 40 mg PO HS 08/17/20 03/30/21 History calcium carbonate 600 mg (1,500 1 tab PO QAM 08/17/20 03/30/21 History mg)-vitamin D3 400 unit tablet (Calcium 600 + D(3)) cholecalciferol (vitamin D3) 25 25 mcg PO QAM 08/17/20 03/30/21 History mcg (1,000 unit) capsule (Vitamin D3) lisinopril 20 mg tablet 20 mg PO QAM 08/17/20 03/30/21 History Patient History Medical History (Updated 03/30/21 @ 12:24 by Sherri Barker MD) CVA (cerebral vascular accident) Surgical History Hx of CABG Social History Smoking Status: Never smoker Hx Alcohol Use: Yes Hx Substance Use: No Preferred Language: Somali Communication Ability: Effective Beliefs That Will Affect Care: None marital status: Current Living Situation: Spouse How many Children do You have: 3 Feels Safe at Home: Yes Safety Concerns: Feels Safe At This Time Assistive Devices: Walker Review of Systems Review of Systems: 14 point review of systems completed and negative except as in HPI. Exam (Neuro) Physical Exam: General Exam: GEN: NAD, lying down in examination bed. HEENT: No conjunctival injection, no rhinorrhea CV: RRR on monitor, no significant edema. PULM: Nonlabored respirations on room air. Neuro Exam: MS: Awake and Alert. Oriented to person, place, and date. Speech fluent and appropriate without dysarthria or paraphasic errors. Language intact including naming, comprehension, repetition. Cognition and memory grossly intact. Attenti on intact. No neglect. CN: Visual virk full, + blink to threat bilaterally. No extinction to double simultaneous stimuli. Unable to visualize fundi on fundoscopic exam. PERRLA OU. EOMI without nystagmus. Facial sensation intact to LT. Facial muscles full and symmetric. Hearing intact to conversation. Shoulder shrug normal. Tongue midline. MOTOR: Normal bulk and tone. No pronator drift. BUE strength 5/5 at deltoids, biceps, triceps, wrist flexors and extensors, and finger flexors bilaterally. BLE strength 5/5 at iliopsoas, hamstrings, quadriceps, tibialis anterior, and gastrocnemius bilaterally. REFLEXES: 1+ at biceps, triceps, brachioradialis, trace patella, and absent Achilles bilaterally. Flexor plantar responses bilaterally. SENSORY: Intact to LT throughout, no extinction to double simultaneous stimuli. Vibration diminished in BLEs up to the knees. COORDINATION: No dysmetria or ataxia on [id number] bilaterally. Normal [place] bilaterally. GAIT: Deferred due to physical status. NIH STROKE SCALE 1A. Level of Consciousness (0-3) = 0 1B. LOC Questions (0-2) = 0 1C. LOC Commands (0-2) = 0 2. Best Horizontal Gaze (0-2) = 0 3. Visual Virk (0-3) = 0 4. Facial Palsy (0-3) = 0 5. Motor Arm Right (0-4) = 0 Left (0-4) = 0 6. Motor Leg Right (0-4) = 0 Left (0-4) = 0 7. Limb Ataxia (0-2) = 0 8. Sensory (0-2) = 0 9. Best Language (0-3) = 0 10. Dysarthria (0-2) = 0 11. Extinction and Inattention (0-2) = 0 NIHSS TOTAL = 0 Results & Data ([facility]) Vital Signs (Past 12 Hours) Vital Signs Temp Pulse Pulse Resp BP BP Pulse Ox 03/30/21 07:50 36.8 C 50 L 16 156/76 H 90 03/30/21 04:00 36.3 C L 53 L 17 188/93 H 98 03/30/21 02:42 54 L 16 03/30/21 02:01 50 L 17 179/93 H 97 03/30/21 01:30 48 L 21 156/96 H 96 03/30/21 01:00 48 L 15 176/102 H 96 03/30/21 00:44 50 L 14 186/93 H 96 03/30/21 00:31 48 L 15 188/100 H 98 03/30/21 00:26 49 L 13 187/120 H 98 03/30/21 00:01 53 L 20 185/141 H 03/29/21 23:52 49 L 20 181/82 H 99 03/29/21 23:37 50 L 27 H 181/82 H 99 PG Care Time/CCT Total # of Minutes Spent Total Time Spent with Patient: Total time spent is greater than 50% in coordination of care (as documented) at patient's floor/unit and/or counseling patient: Coding Level of Care Code 91392 Initial Inpt Care Lvl 3 Diagnoses HTN (hypertension) I10 HLD (hyperlipidemia) E78.5 H/O: stroke Z86.73 TIA (transient ischemic attack) G45.9
[2021-03-30] MEDS ORDERED: PHENYTOIN SODIUM ER 100 MG CAP PO SCH (12:00)
--- NOTE | 2021-03-30 13:31 | Discharge Summary ---
Date of Service March 30, 2021 Admission HPI Per Admitting Provider Juan F Green is an 80-year-old male with past medical history significant for CABG x2 (1997), CVA (2015), seizure disorder, hypertension, hyperlipidemia, BPH, and osteoporosis; who presents for concerns of approximately 30 minutes of word finding difficulty earlier this evening. Starting at approximately 9:30 PM while watching TV with his noticed he was having difficulty vocalizing the specific words he wanted to say. additionally noted this, as well as his daughter noted that he was having some left-sided facial droop with may be some left leg weakness. does endorse that he has issues with finding words intermittently and this is pending somewhat persistent since his original stroke. Upon presentation to the ED had complete resolution of slurred speech and facial droop with questionable residual left leg weakness. Has full recollection of the entirety of events associated specifically with the word finding difficulties but recalls seemingly losing 29 minutes in which he felt like he was asleep prior to when his noticed the word difficulty finding. reports that the 20 some odd minutes prior to word finding he was awake, but patient has no recollection of this time. He knows this specific time as he was sitting down playing [employer] and remembers seeing the clock at 9:00 PM and the next moment that he remembers is feeling like he was waking up with this wor d finding difficulty at 9:30 PM. Admission Exam Per Admitting Provider Constitutional: WD/WN, vitals as above Eyes: PERRL, conjunctivae normal, anicteric sclerae Respiratory: normal respiratory effort, lungs clear to auscultation Auscultation: no crackles, no rales, no rhonchi and no wheezes Cardiovascular: Rate/Rhythm: regular rate and regular rhythm Heart Sounds: no gallop, no murmur and no cardiac rub Vessels: normal peripheral pulses; no JVD Extremities: no edema Gastrointestinal (Abdomen): Inspection/Auscultation: normal bowel sounds; abdomen not distended Percussion/Palpation: abdomen soft; abdomen nontender and no guarding Musculoskeletal: no cyanosis or clubbing, extremities motor strength 5/5 Skin: no rashes, warm and dry Neurologic: PERRL, EOMI, accommodation nl, no face palsy, no dysarthria CN's II-XI intact bilaterally and moves all extremities Psychiatric: Orientation: alert and oriented x 3 Principal Diagnosis TIA Discharge Exam GENERAL: No acute distress. Well developed and well nourished. Vital signs reviewed as above. EYES: EOMI. Anicteric sclerae. HENT: Moist mucous membranes. RESPIRATORY: No respiratory distress. Able to speak in full sentences without increased respiratory effort. EXTREMITIES: No edema. Non-tender. SKIN: Warm, dry. No rashes or lesions. NEUROLOGIC: No focal neurological deficits. CN II-XII grossly intact. PSYCHIATRIC: Cooperative. Appropriate mood and affect. Discharge Data Allergies Allergy/AdvReac Type Severity Reaction Status Date / Time adhesive Allergy Intermediate RASH AND Verified 03/30/21 01:04 SORE SKIN fexofenadine Allergy Intermediate RASH AND Verified 03/30/21 01:04 NOT FEEL WELL latex Allergy Mild RASH Verified 03/30/21 01:04 Consultations 03/30/21 00:52 ED Decision to Admit Stat 03/30/21 04:43 Consult Neurology Routine Ordered Studies 03/29/21 23:59 CT head/brain wo con Urgent 03/30/21 01:44 CT angio head w con Routine CT angio neck with con Routine 03/30/21 04:43 MR brain wo/w con Routine Hospital Course (1) TIA (transient ischemic attack): Juan F Green is an 80-year-old male with past medical history significant for CABG x2 (1997), CVA (2014), seizure disorder, hypertension, hyperlipidemia, BPH, and osteoporosis; admitted for expressive aphasia. TIA - Expressive aphasia sxs lasted approximately 30 minutes before complete resolution - No residual effects or deficits at this time - CT head 03/29: No acute intracranial hemorrhage, no midline shift or space occupying lesions. Chronic small vessel ischemia. Minimal atrophic changes of brain parenchyma associated with ventricular dilatation which is too prominent for the degree of parenchymal atrophy and might represent ex vacuo dilatation and/or hydrocephalus. Overall findings are stable since prior. Please correlate above-mentioned findings with prior history and clinical presentation of hydrocephalus. Lacunar infarct within the right periventricular white matter, new since prior study. - CTA head 03/30: No evidence of hemodynamically significant stenosis of the bilateral middle cerebral, anterior cerebral or posterior cerebral arteries. There is small, 1 mm outpouching within cavernosal portion of the right internal carotid artery which could represent small aneurysm or adjacent opacified small venous structure. Slightly asymmetrical venous enhancement within left cavernosal sinus which could be due to timing of the contrast, slow flow fistula is less likely. - CTA neck 03/30: No significant stenosis, occlusion, or dissection identified within the carotid or left vertebral arteries. Moderate focal stenosis at the takeoff of the right vertebral artery due to the calcified plaque. - Brain MRI 03/30: No acute intracranial abnormality. No acute or subacute infarct. Age-related involutional changes with extensive chronic microvascular ischemic disease. - No indication for TPA given resolution of symptoms - A1c 5.1% - Lipid profile cholesterol 136, LDL 44, HDL 82, triglycerides 50 - Echo pending, follow up with results as outpatient - Evaluated by PT and ST -- no acute needs - Neurology consulted. Appreciate their recommendations: - Started on dual antiplatelet therapy with addition of ASA 81mg daily. Continue ASA 81mg daily + Plavix 75mg daily x28 days, then convert back to just Plavix 75mg daily. - Stroke mechanism: cardioembolic vs cryptogenic - Recommend continuous cardiac monitoring and 30 day event monitor as outpatient as telemetry while admitted was unrevealing - Follow up with PCP for assistance with outptient goals (BP < 130/80, LDL < 70, A1c < 7) - Continue home Atorvastatin 40mg daily - No indication for anticoagulation at this time - Antiplatelet therapy as noted above - Follow up with neurology in 6-8 weeks History of CVA: - CVA in August 2014 - No recurrence of symptoms since that time - Continue risk factor modification with Plavix, lisinopril, and atorvastatin Seizure disorder: - Last known seizure in 1990 - Continue phenytoin 20 mg 3 times daily History of CABG: - Two-vessel CABG in 1997 - Most recent echo with [facility] (Dr. Oates) in August 2020 - Risk factor modification as above Bradycardia: - Patient has had persistent bradycardia over the last several years - Seen and evaluated numerous times with cardiology with no identified triggers - Previously had recommended future evaluation with continuous cardiac monitoring - Given potential for timolol eyedrop contributions to bradycardia, held during admission BPH: -Continue finasteride and tamsulosin Osteoporosis: - Monthly risedronate (2) Expressive aphasia: (3) CVA (cerebral vascular accident): (4) Hx of CABG: (5) Bradycardia: (6) BPH (benign prostatic hyperplasia): (7) HTN (hypertension): (8) HLD (hyperlipidemia): (9) Osteopenia: Total Time Total Time Spent Total Time Spent (In Minutes): See attending attestation Discharge Plan Discharge Items Patient Disposition: Home - Self-Care Reason For Visit: EXPRESSIVE APHASIA Discharge Diagnosis: TIA Condition on Discharge: Good Activity: Resume your previous activity Non-emergency contact: Primary Care Provider and Neurologist Call non-emergency contact if: you have any medication questions and your symptoms worsen Follow-up/Referrals: Francois Rios [Primary Care Provider] - (Office will call with appointment date and time.) Diet: Regular Addtl Attending Provider Instructions: Mr. Green, It was our pleasure to care for you at [facility] From 03/29/21 to 03/30/21. You initially presented to the ER after an episodes of word finding difficulty (called expressive aphasia). Your symptoms resolved. You have been diagnosed with a TIA, transient ischemic attack, a "mini-stroke." Thankfully, you have no residual deficits. You should continue your home medications with the following changes/highlights: 1. Take a "baby Aspirin", which is Aspirin 81mg once a day in addition to your home Plavix 75mg daily for 28 days. Then, you can stop the Aspirin and go back to taking only the Plavix 75mg daily. 2. Continue your atorvastatin 40mg daily as previously prescribed. You should also follow up with your primary care doctor within 1 week. It has been recommended that you be scheduled for continuous cardiac monitoring via a 30 day event monitor as an outpatient. This can be arranged by your PCP. You should also follow up with neurology in 6-8 weeks. Risk Factors for Stroke: You can reduce your chances of stroke by working with your medical provider to adopt a healthy lifestyle. Some specific ways to lower your chance of stroke are: * If you are a smoker, now is the time to stop smoking cigarettes * If you are diabetic, improve the control of your blood sugars * Avoid excessive amounts of alcohol * Control high blood pressure * Lose weight if you are overweight * Be sure to lead an active lifestyle * Eat a healthy diet low in salt, cholesterol and fat You should know about other risk factors for stroke that you are unable to control. These include: * Age 55 years or older * Male gender * Certain racial groups: , or / * Family History of Stroke, Mini stroke or Heart Attack * Sickle Cell Disease Follow Up: It is important for you to keep your follow up appointments with your medical provider. Who to Call and When: Medical Emergencies: Call 911 immediately if you experience any of the following warning signs and symptoms of Stroke: * Sudden numbness or weakness of the face, arm or leg, especially on one side of the body * Sudden confusion, trouble speaking or understanding * Sudden trouble seeing in one or both eyes * Sudden trouble walking, dizziness, loss of balance or coordination * Sudden severe headache with no cause Do not delay calling 911 if you experience any warning signs or symptoms of a stroke. Delay in seeking medical attention may affect what treatments can be given to you. . Pending Studies at Discharge: Yes Studies:: TTE results pending Stand-Alone Forms: Medications to Prevent Stroke, My [facility] Compliance 360, Smoking Cessation Medications and DC Order Prescriptions: New aspirin [Aspirin Low Dose] 81 mg tablet,delayed release (DR/EC) 81 mg PO DAILY 28 Days Qty: 28 RF: 0 Continued multivitamin Tablet 1 tab PO QAM RF: 0 hydralazine 25 mg Tablet 25 mg PO TID RF: 0 phenytoin sodium extended 100 mg capsule 100 mg PO TID RF: 0 clopidogrel 75 mg tablet 75 mg PO QAM RF: 0 tamsulosin 0.4 mg capsule 0.4 mg PO QPM RF: 0 ascorbic acid (vitamin C) [Vitamin C] 500 mg Capsule, Extended Release 500 mg PO QAM RF: 0 hydrochlorothiazide 25 mg Tablet 25 mg PO QAM RF: 0 timolol maleate 0.5 % drops 2 drp OPL BID RF: 0 finasteride 5 mg tablet 5 mg PO QPM RF: 0 coenzyme Q10 100 mg Capsule 100 mg PO QAM RF: 0 vitamin B complex-folic acid [Super B Maxi Complex] 0.4 mg Tablet 1 tab PO QAM RF: 0 risedronate 150 mg tablet 150 mg PO MONTHLY RF: 0 cyanocobalamin (vitamin B-12) 1,000 mcg Capsule 1,000 mcg PO QAM RF: 0 atorvastatin 40 mg Tablet 40 mg PO HS RF: 0 lisinopril 20 mg Tablet 20 mg PO QAM RF: 0 cholecalciferol (vitamin D3) [Vitamin D3] 25 mcg (1,000 unit) Capsule 25 mcg PO QAM RF: 0 calcium carbonate-vitamin D3 [Calcium 600 + D(3)] 600 mg(1,500mg) -400 unit Tablet 1 tab PO QAM RF: 0 Discharge Orders: Discharge Order (Routine); Ordered 03/30/21 Ordered By: Nell Denise/Other Patient Handouts: TIA Dc Admission Data Admit Date/Time: 03/30/21 01:44 Attending Provider: Karan Saunders Admit Provider: Rafiq Montesinos Primary Care Provider: Francois Rios Other Providers: Osmle Fitzgerald ; Sherri Barker Other Interventions: Discharge Summary Assessment (RN) Last Done: 03/30/21 14:23 Supervising Physician Co-Signing Physician Notes I personally examined the patient and verified all nicole points of history and exam, discussed case, and agree with decision making with Dr Dodson. Feeling betterbasically feeling back to normal. Feels like sometimes he still has to work a little bit harder to get the right word out but does not have true difficulty with word finding and is able to speak fluently overall. Definitely wants to go home. Case discussed with neurology, input greatly appreciated. Vitals noted, in general he is awake and alert pleasant no distress. HEENT normocephalic atraumatic mucous membranes moist. Having known him some from the outside world, he appears to be at his baseline of neuro deficits. Breathing is unlabored no accessory muscle use good effort. Skin shows no rashes no pallor or icterus. TIAmost likely small vessel disease/intracranial atherosclerosisto that end aspirin plus Plavix for 1 to 3 months depending on tolerance, then reduce to Plavix alone. Lipids are well suppressed/he is on a moderate intensity statincontinue this. A1c is 5.1no need for intervention. Blood pressure is upbut hard to distinguish autoregulation versus uncontrolled blood pressurerecommended home blood pressure monitoring multiple times a day for the next few weeks and then follow-up with PCP to discuss results. Event monitor as recommended by neurology to eval for occult A. fib. Stable for home, otherwise as above. neuro consult a/p: Juan F Green is an 80 yo man w/ PMH of HTN, HLD, chronic bradycardia, h/o CABG x 2, BPH, h/o seizure disoder on phenytoin and h/o stroke with residual mild expressive aphasia who p/t [facility] with acute onset of dysarthria and left facial droop. Symptom localization: right MCA territory, less likely right [employer] Stroke mechanism: cardioembolic vs cryptogenic Stroke WorkUp: - CT head: showed small chronic infarct in the right periventricular region, +SVID, mild to moderate generalized atrophy with ex vacuo dilation, no hemorrhage - CTA head/neck: showed no LVO, high grade stenosis or aneurysm. - MRI brain: showed no acute infarct, small chronic infarct in right periventricular region, moderate to severe SVID with confluent white matter hyperintensities, and mild to moderate generalized atrophy with ex vacuo dilation. - TTE: pending - Telemetry: pending - A1c: 5.1 - FLP: 44 - Troponin: negative Stroke Management: - Acute treatment: ASA - Continuous cardiac monitoring, recommend 30 day event monitor as outpatient if telemetry here unrevealing - Vitals, Neurochecks, NIHSS per unit routine - BP parameters: SBP CAP 180, restart home BP meds - Consult speech, PT, OT for supportive management - Will certified alcohol and drug counselor concerning stroke education, smoking cessation, healthy diet, physical activity, weight loss - Follow up with PCP for assistance with outpatient goals (BP <130/80, LDL <70, A1c <7) - Follow up in neurology clinic in 6-8 weeks Secondary Stroke Prevention: - Antiplatelet: ASA 81mg po daily - Anticoagulation: Not indicated at this time - Statin: continue home Atorvastatin 40mg daily HTN: - BP parameters, as above - Restart home medications with goal of lowering BP to normotension over next 3- 4 days FEN/GI: - Diet: Cardiac HH diet and PO meds given absence of bulbar signs or symptoms - Monitor lytes and replete PRN Glucose Control: - Sliding scale insulin and accuchecks per primary team to avoid hyperglycemia Thank you for this interesting consult. Plan of care was discussed with primary team. Please call with any questions. He is stable for discharge from a neurological standpoint. Resident Activity Tracking Resident Involvement: Resident Care Provided Care Provided: Adult Hospital Medicine
[2021-03-30] MEDS ORDERED: STROKE PATIENT DISCHARGE STA (13:43)
--- NOTE | 2021-03-30 15:25 | Pharmacy Report ---
Pharmacist Stroke Counseling - Date of Service March 30, 2021 - Scope: Pharmacy has been consulted to provide medication discharge counseling for this patient admitted with [ischemic stroke] [hemorrhagic stroke] [transient ischemic attack] as per the Pharmacist Discharge Counseling for Stroke Patients Pr otocol. - Medications on Discharge: Home Medications Medication Instructions Recorded Confirmed ascorbic acid (vitamin C) 500 mg 500 mg PO QAM 11/29/19 03/30/21 capsule,extended release (Vitamin C) clopidogrel 75 mg tablet 75 mg PO QAM 11/29/19 03/30/21 coenzyme Q10 100 mg capsule 100 mg PO QAM 11/29/19 03/30/21 cyanocobalamin (vitamin B-12) 1,000 mcg PO QAM 11/29/19 03/30/21 1,000 mcg capsule finasteride 5 mg tablet 5 mg PO QPM 11/29/19 03/30/21 hydralazine 25 mg tablet 25 mg PO TID 11/29/19 03/30/21 hydrochlorothiazide 25 mg tablet 25 mg PO QAM 11/29/19 03/30/21 multivitamin 1 tab PO QAM 11/29/19 03/30/21 phenytoin sodium extended 100 mg 100 mg PO TID 11/29/19 03/30/21 capsule risedronate 150 mg tablet 150 mg PO MONTHLY 11/29/19 03/30/21 tamsulosin 0.4 mg capsule 0.4 mg PO QPM 11/29/19 03/30/21 timolol maleate 0.5 % eye drops 2 drp OPL BID 11/29/19 03/30/21 vitamin B complex-folic acid 0.4 1 tab PO QAM 11/29/19 03/30/21 mg tablet (Super B Maxi Complex) atorvastatin 40 mg tablet 40 mg PO HS 08/17/20 03/30/21 calcium carbonate 600 mg (1,500 1 tab PO QAM 08/17/20 03/30/21 mg)-vitamin D3 400 unit tablet (Calcium 600 + D(3)) cholecalciferol (vitamin D3) 25 25 mcg PO QAM 08/17/20 03/30/21 mcg (1,000 unit) capsule (Vitamin D3) lisinopril 20 mg tablet 20 mg PO QAM 08/17/20 03/30/21 New Rx's Medication Instructions Recorded aspirin 81 mg tablet,delayed 81 mg PO DAILY 28 Days #28 tab 03/30/21 release (Aspirin Low Dose) - Action: The above medications, specifically ones for stroke treatment/prophylaxis, have been reviewed in detail with the patient and/or patient ict sales representative(s) prior to discharge. This includes indication, common adverse reactions, drug interactions, and medication administration. Medication counseling has been employed using the teach-back method to ensure understanding. - Outcome: The patient and/or patient ict sales representative(s) have demonstrated understanding of the medications. Additional comments: Patient familiar with aspirin. He reports taking it in the past. He will utilize enteric coated product. Reviewed s/s bleeding. Patient expressed understanding to take ASA + plavix x 28 days, then stop ASA and continue plavix. Thank you for allowing pharmacy to be involved in the care of this patient. Please call [phone] with any additional questions
--- NOTE | 2021-03-30 17:13 | XCELERA ---
[id number]
--- NOTE | 2021-03-30 17:44 | Billing Data ---
Date of Service March 30, 2021 Coding Level of Care Code D/C DAY MANAGEMENT <30 MINS
[2021-03-30] MEDS ORDERED: ATORVASTATIN 40 MG TAB PO SCH (21:00)
[2021-03-30] MEDS ORDERED: TAMSULOSIN HCL 0.4 MG CAP PO SCH (21:00)
[2021-03-30] MEDS ORDERED: FINASTERIDE 5 MG TAB PO SCH (21:00)
--- NOTE | 2021-03-30 23:42 | Billing Data ---
Date of Service March 30, 2021 Coding Level of Care Code 51210 Initial Inpt Care Lvl 3
--- NOTE | 2021-03-31 05:25 | Electrocardiogram Report ---
Test Reason : Blood Pressure : / mmHG Vent. Rate : 049 BPM Atrial Rate : 049 BPM P-R Int : 272 ms QRS Dur : 106 ms QT Int : 492 ms P-R-T Axes : 037 -07 031 degrees QTc Int : 444 ms Sinus bradycardia with 1st degree A-V block with Premature atrial complexes Inferior infarct (cited on or before 17-AUG-2020) Abnormal ECG When compared with ECG of 17-AUG-2020 19:28, Premature atrial complexes are now Present Confirmed by Ankit Wolff ([id number]) on 03/31/2021 5:25:26 AM Referred By: REFERRED SELF Confirmed By:Ankit Wolff
== END 2021-03-30 16:05 | disposition home or self-care (01) ==
LOC: ED 23:29 → SUATTDRO 03-30 01:44 → INTOOBSV 03-30 01:44 → 2S 03-30 01:44